=== PATIENT | male | born 1995 | race Caucasian/White ===

== ENCOUNTER 2016-10-04 09:53 | Emergency (ER) | payer OTHER, MEDICAID ==
--- NOTE | 2016-10-04 10:10 | ER Document Report ---
ED Medical Screen (RME) - General Chief Complaint: Psych Problem Stated Complaint: PSYCH EVALUATION Time Seen by Provider: 10/04/16 10:06 Notes: Patient presents stating that he needs help with "coping". He denies hallucinations. He states he is depressed but is not currently suicidal. He states he would like to be referred for placement at an inpatient facility. TRAVEL OUTSIDE OF THE [place] IN LAST 30 DAYS: No - Related Data Allergies/Adverse Reactions: No Known Allergies Allergy (Verified 10/04/16 09:58) Past Medical History Renal/ Medical History: Denies: Hx Peritoneal Dialysis Psychiatric Medical History: Reports: Hx Attention Deficit Hyperactivity Disorder, Hx Bipolar Disorder - Immunizations Immunizations up to date: Yes
[2016-10-04 10:29] LABS: ABSOLUTE MONOCYTES (AUTO) 0.5 10^3/uL (0.1-1.4); ABSOLUTE NEUT (AUTO) 6.9 10^3/uL (1.7-8.2); BASOPHILS % (AUTO) 0.2 % (0-2); EOSINOPHILS % (AUTO) 0.5 % (0-6); HEMATOCRIT 40.7 % (37.9-51.0); HEMOGLOBIN 13.4 g/dL (13.5-17.0); HGB HCT DIFFERENCE -0.5; LYMPHOCYTES % (AUTO) 12.1 % (13-45); MEAN CORPUSCULAR HEMOGLOBIN 27.7 pg (27.0-33.4); MEAN CORPUSCULAR VOLUME 84 fl (80-97); MONOCYTES % (AUTO) 5.7 % (3-13); RED BLOOD COUNT 4.85 10^6/uL (4.35-5.55); RED CELL DISTRIBUTION WIDTH 13.7 % (11.5-14.0); SEGMENTED NEUTROPHILS % (AUTO) 81.5 % (42-78); WHITE BLOOD COUNT 8.4 10^3/uL (4.0-10.5)
[2016-10-04 10:31] LABS: APPEARANCE,URINE CLEAR; BILIRUBIN,URINE NEGATIVE (NEGATIVE); GLUCOSE, URINE NEGATIVE (NEGATIVE); KETONES,URINE NEGATIVE (NEGATIVE); LEUKOCYTE ESTERASE,URINE NEGATIVE (NEGATIVE); NITRITE,URINE NEGATIVE (NEGATIVE); PROTEIN,URINE 30 mg/dL (NEGATIVE); URINE SPECIFIC GRAVITY 1.018; UROBILINOGEN,URINE NEGATIVE mg/dL (<2.0)
[2016-10-04 10:46] LABS: ALANINE AMINOTRANSFERASE 25 U/L (21-72); ALBUMIN 4.4 g/dL (3.5-5.0); ALKALINE PHOSPHATASE 190 U/L (38-126); ANION GAP 13 (5-19); ASPARTATE AMINO TRANSFERASE 22 U/L (17-59); BILIRUBIN,DIRECT 0.3 mg/dL (0.0-0.4); BILIRUBIN,TOTAL 0.5 mg/dL (0.2-1.3); BLOOD UREA NITROGEN 12 mg/dL (7-20); CALCIUM 9.7 mg/dL (8.4-10.2); CARBON DIOXIDE 25 mmol/L (22-30); CHLORIDE 104 mmol/L (98-107); CREATININE RESULT 0.75 mg/dL (0.52-1.25); GLUCOSE 127 mg/dL (75-110); SODIUM 141.9 mmol/L (137-145); TOTAL PROTEIN 7.4 g/dL (6.3-8.2)
[2016-10-04 10:49] LABS: ALCOHOL < 10 mg/dL (NONE DETECTED)
--- NOTE | 2016-10-04 10:53 | ER Document Report ---
ED Psych Disorder / Suicide - General Mode of Arrival: Medic Information source: Patient TRAVEL OUTSIDE OF THE [place] IN LAST 30 DAYS: No - HPI Associated symptoms: Other - see above <KATIE VILLATORO - Last Filed: 10/04/16 10:45> <JONATHAN MORELOS - Last Filed: 10/04/16 14:29> - General Chief Complaint: Psych Problem Stated Complaint: PSYCH EVALUATION Time Seen by Provider: 10/04/16 10:06 Notes: Patient is a 21 year old male who presents to the ED via EMS with complaints of wanting help and to be admitted to [facility]. Patient states he is having a hard time coping and recently had medications changed. Patient states today he was at his moms and he "blacked out verbally" saying stuff he did not mean and he knows hurts her. Patient states he was at [facility] on Monday to get his Invega injection and talked to them about how he was feeling. Patient states he use to get the injections 1x a month and it has now increased to every 2 weeks. Patients last admission to [facility] was 1 1/2 years ago approximately. (KATIE VILLATORO) - Related Data Allergies/Adverse Reactions: No Known Allergies Allergy (Verified 10/04/16 09:58) Past Medical History - General Information source: Patient - Social History Smoking Status: Current Every Day Smoker Frequency of alcohol use: None Drug Abuse: None Family History: Reviewed & Not Pertinent Patient has suicidal ideation: No Patient has homicidal ideation: No Renal/ Medical History: Denies: Hx Peritoneal Dialysis Psychiatric Medical History: Reports: Hx Attention Deficit Hyperactivity Disorder, Hx Bipolar Disorder - Immunizations Immunizations up to date: Yes <KATIE VILLATORO - Last Filed: 10/04/16 10:45> Review of Systems - Review of Systems Constitutional: No symptoms reported EENT: No symptoms reported Cardiovascular: No symptoms reported Respiratory: No symptoms reported Gastrointestinal: No symptoms reported Genitourinary: No symptoms reported Male Genitourinary: No symptoms reported Musculoskeletal: No symptoms reported Skin: No symptoms reported Hematologic/Lymphatic: No symptoms reported Neurological/Psychological: See HPI, Other - difficulty coping <KATIE VILLATORO - Last Filed: 10/04/16 10:45> Physical Exam - General General appearance: Appears well, Alert In distress: None - HEENT Head: Normocephalic, Atraumatic Eyes: Normal Extraocular movements intact: Yes Pupils: PERRL Neck: Normal - Respiratory Respiratory status: No respiratory distress Breath sounds: Normal - Cardiovascular Rhythm: Regular Heart sounds: Normal auscultation Murmur: No - Abdominal Inspection: Normal Distension: No distension - Back Back: Normal - Neurological Neuro grossly intact: Yes - Psychological Associated symptoms: Normal affect, Normal mood - Skin Skin Temperature: Warm Skin Moisture: Dry Skin Color: Normal <KATIE VILLATORO - Last Filed: 10/04/16 10:45> Course - Laboratory Result Diagrams: 10/04/16 10:10 10/04/16 10:10 <KATIE VILLATORO - Last Filed: 10/04/16 10:45> - Laboratory Result Diagrams: 10/04/16 10:10 10/04/16 10:10 - EKG Interpretation by Md EKG shows normal: Sinus rhythm, [place], Intervals, ST-T Waves. abnormal: QRS Complexes - Inferior Q's Rate: Normal - 81 Rhythm: NSR <JONATHAN MORELOS - Last Filed: 10/04/16 14:29> - Laboratory Laboratory results interpreted by ia: 10/04/16 10/04/16 10/04/16 10:10 10:10 10:10 Hgb 13.4 L Seg Neutrophils % 81.5 H Lymphocytes % 12.1 L Glucose 127 H Alkaline Phosphatase 190 H Urine Protein 30 H Salicylates < 1.0 L Acetaminophen < 10 L Discharge <KATIE VILLATORO - Last Filed: 10/04/16 10:45> <JONATHAN MORELOS - Last Filed: 10/04/16 14:29> - Discharge Clinical Impression: Bipolar depression, Drug abuse, cocaine type, Drug abuse, marijuana Condition: Stable Disposition: HOME, SELF-CARE Additional Instructions: Cocaine Abuse Cocaine causes many dangerous medical problems. Problems can occur even with "usual" amounts. Cocaine affects judgement, creating a sense of invulnerability. Cocaine users often make bad decisions that seem "great" at the time. Most cocaine users eventually will be hurt by bad job performance, damaged personal relations, crime, and unsafe sexual practices. Toxic effects of cocaine can include seizures, hallucinations, delusions, high blood pressure, heart damage, or sudden . There's always the risk of a "bad batch." But heart attacks, brain hemorrhages, or cardiac arrest can occur unpredictably even with "normal" use. Injection of cocaine is risky for abscesses, endocarditis (heart infection) , pneumonia, and AIDS. Withdrawal from cocaine often causes anxiety and drug cravings. Some users become paranoid and psychotic. Many treatment programs are available, but you must make the decision to quit. Medication can be prescribed to control the symptoms of cocaine toxicity (beta blockers or benzodiazepines). Withdrawal symptoms may require tranquilizers. Bipolar Disorder Bipolar disorder is also called manic-depressive disorder. Depression alternates with brain hyperactivity called ray. Each phase lasts from several days to a few weeks. We don't know exactly what causes bipolar disorder , but it's treatable. During the "manic phase," you may feel elated and energetic. You may have racing thoughts, rapid speech, increased activity, and grandiose ideas. During this time, you may not realize how poor your judgement is. Inappropriate spending, drug abuse, excessive alcohol use, marriage problems, and irresponsible sexual behavior are common during the manic phase. During the "depressive phase," you might feel depressed, guilty, worthless , fatigued, and unable to concentrate. You might have thoughts of suicide. Good treatments are available for bipolar disorder. [place] is a classic drug for bipolar disorder, and is still often useful. If the manic phase is very mild, an antidepressant alone can be prescribed. If the manic phase is very severe, an antipsychotic medicine (such as Haldol) may be needed. The treatment must be matched to your symptoms, so it's important to work closely with your psychiatric care provider. Contact your physician, the hospital emergency center, crisis line, or your counsellor if you are losing control or having self-destructive thoughts. Schizophrenia Schizophrenia is a chemical disorder that affects how the brain functions. The exact cause is unknown, but it tends to run in families. It is NOT caused by emotional trauma. Schizophrenia causes disordered thinking, including unusual beliefs and inability to "process" happenings around the patient. Patients with schizophrenia benefit greatly from medicine. These medicines are called antipsychotics. Never stop the medicine without the doctor 's approval. Counselling may help the patient deal with his disease. Schizophrenics require a very ordered environment. Stresses and sudden changes may bring out symptoms. Drugs and alcohol abuse may become problems. Contact the counsellor or crisis line if there are thoughts of suicide or of harming others, or if you become aware of unusual thoughts or beliefs Please follow up with your provider and discuss outpatient counseling. You have indicated you are struggling with grief over the of your grandmother. Counseling may assist you in developing coping skills to manage your grief. Please stop using drugs. Please take your medications as prescribed. Referrals: [facility] [Provider Group] - Follow up in 3-5 days [facility] [Primary Care Provider] - Follow up as needed Scribe Attestation: 10/04/16 14:07 I personally performed the services described in the documentation, reviewed and edited the documentation which was dictated to the scribe in my presence, and it accurately records my words and actions. (JONATHAN MORELOS) Scribe Documentation - Scribe Written by Tamara:: tamara Galvez, 10/04/2016, 1054 acting as scribe for :: Jesi <KATIE VILLATORO - Last Filed: 10/04/16 10:45>
[2016-10-04 10:59] LABS: URINE BARBITURATES SCREEN NEGATIVE; URINE METHADONE SCREEN NEGATIVE; URINE OPIATES LOW NEGATIVE; URINE PHENCYCLIDINE SCREEN NEGATIVE
--- NOTE | 2016-10-04 12:11 | EKG REPORT ---
SEVERITY:- BORDERLINE ECG - SINUS RHYTHM BORDERLINE Q WAVES IN INFERIOR LEADS INFERIOR Q WAVES, PROBABLY NORMAL VARIATION : Confirmed by: Cindi Denney 04-Oct-2016 12:10:29
--- NOTE | 2016-10-04 12:28 | ER Document Report ---
ED Psych Disorder / Suicide - General Chief Complaint: Psych Problem Stated Complaint: PSYCH EVALUATION Time Seen by Provider: 10/04/16 10:06 Mode of Arrival: Medic TRAVEL OUTSIDE OF THE [place] IN LAST 30 DAYS: No - HPI Normal mood: Yes Associated symptoms: Normal affect, Anxious Similar symptoms previously: Yes Recently seen / treated by doctor: No - Monday was seen at [facility] and administered his Invega Injection Notes: Patient is a 21 year old male who presents via EMS stating he needs to go to [facility], and called them, but was instructed to present to the ED for clearance first. Patient reported upon arrival he is followed by [facility] and was seen as recently as Monday for his biweekly Invega shot. Patient reported he talked to his provider about his mental status, and today had an argument with his mother which precipitated today's visit. Patient states he called his mother today to tell her he needed to go to [facility]. Patient denies anything specific occurred to precipitate this. He states he was there before and they were helpful. Patient identified their individual counseling, and group therapy sessions as the most helpful. Patient states he feels he needs counseling. He states his grandmother recently, with whom he lived. Patient states historically his Invega injections helped, but he feels he is struggling with sadness, possibly due to her . Patient states he showed up to his mother's house and she was on the phone. Patient states he started banging on the wall to get her attention. Patient denies making any threats towards her, himself, or property. Patient denies suicidal/homicidal ideations. Patient provides verbal consent to contact his mother. Mother, Dominique states nothing is different today. She states he stated he needed help, but this is part of his mental illness. She states she does not know what to do, and cannot let him live there. She states she allows him to live on the property, but he cannot be in the home. She states she needs a break. She states her mother in April and that is where he would go when he needs help. Mother states he cannot return to her property. Mother acknowledges that he did not make any threats towards her or himself, but that she cannot "handle his mood swings." Patient is A&O. Mood is euthymic with normal affect. Patient denies suicidal/ homicidal ideations. Patient denies A/V H; delusions not noted. Thought processes were organized. Conversational speech was WNL. Intellectual abilities were estimated within low average range. Attention and focus were fair. Insight and judgment and impulse control were fair. Schizoaffective Disorder, per history Unspecified Cocaine Use Disorder Unspecified Cannabis Use Disorder Patient is psychiatrically cleared for discharge. Patient is recommended to follow up with his provider and pursue outpatient counseling. Patient denies suicidal/homicidal ideations, and also denies command hallucinations instructing him to harm himself, others, or cause destruction and therefor does not meet criteria for IVC. Patient has been provided resources, to include [facility], [employer], and the [facility]. I consulted with Dr. Carson in regards to the care and management of this patient. ED MD is in agreement with disposition and recommendations. - Related Data Allergies/Adverse Reactions: No Known Allergies Allergy (Verified 10/04/16 09:58) Past Medical History - General Information source: Patient, Parent, [facility] - Social History Smoking Status: Current Every Day Smoker Cigarette use (# per day): Yes Smoking Education Provided: No Frequency of alcohol use: None Drug Abuse: None Family History: Reviewed & Not Pertinent Patient has suicidal ideation: No Patient has homicidal ideation: No Renal/ Medical History: Denies: Hx Peritoneal Dialysis Psychiatric Medical History: Reports: Hx Attention Deficit Hyperactivity Disorder, Hx Bipolar Disorder - Immunizations Immunizations up to date: Yes Course - Laboratory Result Diagrams: 10/04/16 10:10 10/04/16 10:10 Laboratory results interpreted by me: 10/04/16 10/04/16 10/04/16 10:10 10:10 10:10 Hgb 13.4 L Seg Neutrophils % 81.5 H Lymphocytes % 12.1 L Glucose 127 H Alkaline Phosphatase 190 H Urine Protein 30 H Salicylates < 1.0 L Acetaminophen < 10 L Discharge - Discharge Clinical Impression: Bipolar depression, Drug abuse, cocaine type, Drug abuse, marijuana Condition: Stable Disposition: HOME, SELF-CARE Additional Instructions: Cocaine Abuse Cocaine causes many dangerous medical problems. Problems can occur even with "usual" amounts. Cocaine affects judgement, creating a sense of invulnerability. Cocaine users often make bad decisions that seem "great" at the time. Most cocaine users eventually will be hurt by bad job performance, damaged personal relations, crime, and unsafe sexual practices. Toxic effects of cocaine can include seizures, hallucinations, delusions, high blood pressure, heart damage, or sudden . There's always the risk of a "bad batch." But heart attacks, brain hemorrhages, or cardiac arrest can occur unpredictably even with "normal" use. Injection of cocaine is risky for abscesses, endocarditis (heart infection) , pneumonia, and AIDS. Withdrawal from cocaine often causes anxiety and drug cravings. Some users become paranoid and psychotic. Many treatment programs are available, but you must make the decision to quit. Medication can be prescribed to control the symptoms of cocaine toxicity (beta blockers or benzodiazepines). Withdrawal symptoms may require tranquilizers. Bipolar Disorder Bipolar disorder is also called manic-depressive disorder. Depression alternates with brain hyperactivity called ray. Each phase lasts from several days to a few weeks. We don't know exactly what causes bipolar disorder , but it's treatable. During the "manic phase," you may feel elated and energetic. You may have racing thoughts, rapid speech, increased activity, and grandiose ideas. During this time, you may not realize how poor your judgement is. Inappropriate spending, drug abuse, excessive alcohol use, marriage problems, and irresponsible sexual behavior are common during the manic phase. During the "depressive phase," you might feel depressed, guilty, worthless , fatigued, and unable to concentrate. You might have thoughts of suicide. Good treatments are available for bipolar disorder. [place] is a classic drug for bipolar disorder, and is still often useful. If the manic phase is very mild, an antidepressant alone can be prescribed. If the manic phase is very severe, an antipsychotic medicine (such as Haldol) may be needed. The treatment must be matched to your symptoms, so it's important to work closely with your psychiatric care provider. Contact your physician, the hospital emergency center, crisis line, or your counsellor if you are losing control or having self-destructive thoughts. Schizophrenia Schizophrenia is a chemical disorder that affects how the brain functions. The exact cause is unknown, but it tends to run in families. It is NOT caused by emotional trauma. Schizophrenia causes disordered thinking, including unusual beliefs and inability to "process" happenings around the patient. Patients with schizophrenia benefit greatly from medicine. These medicines are called antipsychotics. Never stop the medicine without the doctor 's approval. Counselling may help the patient deal with his disease. Schizophrenics require a very ordered environment. Stresses and sudden changes may bring out symptoms. Drugs and alcohol abuse may become problems. Contact the counsellor or crisis line if there are thoughts of suicide or of harming others, or if you become aware of unusual thoughts or beliefs Please follow up with your provider and discuss outpatient counseling. You have indicated you are struggling with grief over the of your grandmother. Counseling may assist you in developing coping skills to manage your grief. Please stop using drugs. Please take your medications as prescribed. Referrals: [facility] [Primary Care Provider] - Follow up as needed [facility] [Provider Group] - Follow up in 3-5 days
[2016-10-04 14:44] VITALS: BP 130/65
== END 2016-10-04 14:57 | disposition home or self-care (01) ==
LOC: ER 09:53
DX: F31.9 Bipolar disorder, unspecified (principal); F14.10 Cocaine abuse, uncomplicated; F12.10 Cannabis abuse, uncomplicated; F17.210 Nicotine dependence, cigarettes, uncomplicated
CPT/HCPCS: 36415; 80053; 80307; 81001; 85025; 93005; 93010; 99284

== ENCOUNTER 2018-09-29 16:33 | Emergency (ER) | payer MEDICAID, OTHER ==
[2018-09-29 16:37] VITALS: BP 121/68
[2018-09-29] MEDS ORDERED: IBUPROFEN 600 MG TABLET PO ONE (16:40)
--- NOTE | 2018-09-29 16:44 | ER Document Report ---
HPI - HPI Time Seen by Provider: 09/29/18 16:40 Pain Level: 2 Notes: Patient is a 23-year-old male with no significant past medical history presents complaining of left wrist pain status post injury yesterday. Patient states that he was "roughhousing" and the wrist got bent. Patient states that he has pain primarily with movement. Pain is described as sharp and will occasionally radiate proximally. He has not noticed any obvious swelling or bruising. Denies drug allergies. No history of IV drug abuse. Denies any headache, fever, head injury, neck pain, changes in vision/speech/mentation/hearing, URI, sore throat, chest pain, palpitations, syncope, cough, shortness of breath, wheeze, dyspnea, abdominal pain, nausea/vomiting/diarrhea, urinary retention, dysuria, hematuria, loss of control of bowel or bladder, numbness/tingling, muscle paralysis/weakness, or rash. - ROS Systems Reviewed and Negative: Yes All other systems reviewed and negative Past Medical History - Social History Smoking Status: Current Some Day Smoker Family History: Reviewed & Not Pertinent Renal/ Medical History: Denies: Hx Peritoneal Dialysis Psychiatric Medical History: Reports: Hx Attention Deficit Hyperactivity Disorder, Hx Bipolar Disorder - Immunizations Immunizations up to date: Yes Vertical Provider Document - CONSTITUTIONAL Agree With Documented VS: Yes Notes: PHYSICAL EXAMINATION: GENERAL: Well-appearing, well-nourished and in no acute distress. HEAD: Atraumatic, normocephalic. NECK: Normal range of motion, supple without lymphadenopathy. No midline tenderness. LUNGS: Breath sounds clear to auscultation bilaterally and equal. No wheezes rales or rhonchi. HEART: Regular rate and rhythm without murmurs, rubs, gallops. Musculoskeletal: Lt hand/wrist: No erythema, warmth, ecchymosis, deformity, or swelling noted. N/V intact distal. FROM to passive/active at the wrist. Strength 5+/5 to pet house sitter. No scaphoid tenderness. + tenderness to the distal wrist, reproduces symptoms. Gamekeeper negative. Extremities: No cyanosis, clubbing, or edema b/l. Peripheral pulses 2+. Capillary refill less than 3 seconds. NEUROLOGICAL: Normal speech, normal gait. Normal sensory, motor exams otherwise unremarkable PSYCH: Normal mood, normal affect. SKIN: see above. No rash - INFECTION CONTROL TRAVEL OUTSIDE OF THE [place] IN LAST 30 DAYS: No Course - Re-evaluation Re-evalutation: 09/29/18 Patient is an afebrile, well-hydrated, 23-year-old female who presents to the ED with left wrist pain which I suspect to be a sprain versus strain. Vitals are acceptable without any significant tachycardia, tachypnea, or hypoxia. PE is otherwise unremarkable for any neurovascular compromise, obvious tendon/ligament rupture, obvious fracture/dislocation, septic joint. X-ray was unremarkable for any acute pathology. Cock up splint provided. Motrin given PO. Patient is nontoxic-appearing. No other labs or imaging warranted at this time based on H&P. Conservative measures otherwise for symptoms. Recheck with your PCM in 3- 5 days. Consider consult orthopedics. Return to the ED with any worsening/concerning symptoms otherwise as reviewed in discharge. Patient is in agreement. - Vital Signs Vital signs: Temp Pulse Resp BP Pulse Ox 97.9 F 103 H 16 121/68 96 09/29/18 16:36 09/29/18 16:36 09/29/18 16:36 09/29/18 16:36 09/29/18 16:36 Discharge - Discharge Clinical Impression: Left wrist pain Condition: Stable Disposition: HOME, SELF-CARE Additional Instructions: Rest, Ice, Compression, Elevation Tylenol/ibuprofen as needed Light stretches daily Strength exercises as able Moist heat and massage may help F/u with your PCP in 3-5 days for a recheck Consider consult(s) with Orthopedics/physical therapy for ongoing/worsening symptoms Return to the ED with any worsening symptoms and/or development of fever, headac he, chest pain, palpitations, syncope, shortness of breath, trouble breathing, abdominal pain, n/v/d, muscle weakness/paralysis, numbness/tingling, swelling, redness, or other worsening symptoms that are concerning to you. Prescriptions: Naproxen 500 mg PO BID #10 tablet Forms: Smoking Cessation Education Referrals: [facility] [Provider Group] - Follow up as needed
--- NOTE | 2018-09-29 17:13 | RADIOLOGY REPORT (SQ) ---
EXAM DESCRIPTION: WRIST LEFT 3 VIEWS COMPLETED DATE/TIME: 09/29/2018 5:04 pm REASON FOR STUDY: pain s/p injury COMPARISON: None. EXAM PARAMETERS: NUMBER OF VIEWS: Three views. TECHNIQUE: AP, lateral and oblique radiographic images acquired of the left wrist. LIMITATIONS: None. FINDINGS: MINERALIZATION: Normal. BONES: No acute fracture or dislocation. No worrisome bone lesions. JOINTS: No effusion. SOFT TISSUES: No significant soft tissue swelling. No radiopaque foreign body. OTHER: No other significant finding. IMPRESSION: NO FRACTURE. TECHNICAL DOCUMENTATION: JOB ID: [id number] [id number] 2010 [employer]- All Rights Reserved Reading location - IP/workstation name: [email or web address]
== END 2018-09-29 17:54 | disposition home or self-care (01) ==
LOC: ER 16:33
DX: M25.532 Pain in left wrist (principal); X58.XXXA Exposure to other specified factors, initial encounter; Y93.83 Activity, rough housing and horseplay; F17.200 Nicotine dependence, unspecified, uncomplicated
CPT/HCPCS: 99283; 73110; L3908